=== PATIENT | male | born 1930 | race Caucasian/White ===

== ENCOUNTER → 2017-01-29 | Outpatient (REF) | payer MEDICARE ==
[~2017-01-29] MED LIST: ALPR2TAB3 PO; COLA100C5 PO; FINA5TAB2 PO; FLOM5CAP PO; FURO20TA2 PO; IRBE150T12 PO; ISOS20TA PO; LIDO2JELLY TOP; MIRA3350 PO; NORCOTAB PO; OXYB5TAB10 PO; PARO20TA3 PO; PRAV40TA2 PO; PROT1TAB2 PO; SULF1TAB23 PO; TRAM37.53 PO; TYLE167L PO; XARE15TA PO; XARE20TA PO
[2017-01-29 19:49] LABS: MEAN CORPUSCULAR HEMOGLOBIN 31.4 pg (27.0-33.0); MEAN CORPUSCULAR HGB CONC 33.8 g/dl (32.0-36.5); MEAN CORPUSCULAR VOLUME 92.9 fl (80.0-96.0); RED CELL DISTRIBUTION WIDTH 12.7 % (11.5-14.5); WHITE BLOOD COUNT 8.5 K/mm3 (4.0-10.0)
[2017-01-29 20:09] LABS: ALBUMIN/GLOBULIN RATIO 1.18 (1.00-1.93); ALKALINE PHOSPHATASE 143 U/L (45-117); ALT/SGPT 20 U/L (12-78); ANION GAP 8 MEQ/L (8-16); AST/SGOT 10 U/L (15-37); BILIRUBIN,TOTAL 0.5 MG/DL (0.2-1.0); BLOOD UREA NITROGEN 24 MG/DL (7-18); CALCIUM LEVEL 9.2 MG/DL (8.8-10.2); CARBON DIOXIDE LEVEL 29 MEQ/L (21-32); CHLORIDE LEVEL 105 MEQ/L (98-107); CHOLESTEROL LEVEL 166 MG/DL (<200); CREATININE FOR GFR 1.07 MG/DL (0.70-1.30); GLOMERULAR FILTRATION RATE > 60.0 (>35); GLUCOSE, FASTING 83 MG/DL (83-110); SODIUM LEVEL 142 MEQ/L (136-145); TOTAL PROTEIN 7.4 GM/DL (6.4-8.2); TRIGLYCERIDES LEVEL 72 MG/DL (<150)
== END ==
LOC: M SFHCADAM 14:51
PROVIDERS: ATTEND Family Medicine
DX: E78.5 Hyperlipidemia, unspecified (principal); Z86.718 Personal history of other venous thrombosis and embolism
CPT/HCPCS: 80053; 80061; 85027; G0463

== ENCOUNTER → 2017-03-16 | Outpatient (REF) | payer MEDICARE ==
[2017-03-16 19:39] LABS: MICROSCOPIC INDICATED? MAN YES (NO)
[2017-03-16 20:44] LABS: MICROSCOPIC EXAM PERFORMED
[2017-03-16 20:45] LABS: BACTERIA, URINE SMALL AMOUNT; HYALINE CAST, URINE NONE SEEN /lpf (0-1); RBC, URINE NONE SEEN /hpf (0-3); SQUAMOUS EPITHELIAL CELL URINE SMALL AMOUNT /hpf (SMALL AMT)
== END ==
LOC: M SMT 17:40
PROVIDERS: ATTEND Nurse Practitioner Women's Health
DX: N31.9 Neuromuscular dysfunction of bladder, unspecified (principal); N40.0 Benign prostatic hyperplasia without lower urinary tract symptoms
CPT/HCPCS: 51703; 81000; 87088; 87186; G0463

== ENCOUNTER 2017-04-02 09:50 | Emergency (ER) | payer MEDICARE ==
[~2017-04-02] VITALS: Ht 172.7 cm; Wt 68.2 kg
[~2017-04-02 09:50] MED LIST changes: -FINA5TAB2 PO; -OXYB5TAB10 PO; -PARO20TA3 PO
[2017-04-02] MEDS ORDERED: FINA5TAB2 PO (10:07)
[2017-04-02] MEDS ORDERED: PARO20TA3 PO (10:07)
[2017-04-02] MEDS ORDERED: OXYB5TAB10 PO (10:30)
[2017-04-02 10:44] LABS: BASO % 0.7 % (0.0-1.0); EOS # 0.4 K/mm3 (0.0-0.50); EOS % 6.5 % (0.0-3.0); LARGE UNSTAINED CELL # 0.2 K/mm3 (0.0-0.4); LARGE UNSTAINED CELL % 2.8 % (0.0-4.0); LYMPH # 1.2 K/mm3 (1.5-4.5); LYMPH % 18.2 % (24.0-44.0); MEAN CORPUSCULAR HEMOGLOBIN 31.6 pg (27.0-33.0); MEAN CORPUSCULAR HGB CONC 34.3 g/dl (32.0-36.5); MEAN CORPUSCULAR VOLUME 91.9 fl (80.0-96.0); MONO # 0.4 K/mm3 (0.0-0.8); MONO % 5.7 % (0.0-5.0); NEUTROPHILS # 4.4 K/mm3 (1.8-7.7); PLATELET COUNT, AUTOMATED 223 k/mm3 (150-450); RED CELL DISTRIBUTION WIDTH 12.6 % (11.5-14.5); WHITE BLOOD COUNT 6.6 K/mm3 (4.0-10.0)
--- NOTE | 2017-04-02 11:17 | REP ---
PORTABLE CHEST X-RAY: Single view. HISTORY: Chest pain. COMPARISON STUDY: February 07, 2009. FINDINGS: The lungs are symmetrically aerated and free of infiltrate. There is mild linear plate-like atelectasis in the right base. Heart is not enlarged. The aorta is tortuous. The patient is status post thoracolumbar spine shannan fusion surgery. IMPRESSION: Mild linear plate-like atelectasis right base. Otherwise no acute disease. Status post thoracolumbar spine fusion. Signed by Elias Bro MD 04/02/2017 02:37 P
[2017-04-02 11:41] LABS: ALBUMIN 3.2 GM/DL (3.2-5.2); ALKALINE PHOSPHATASE 111 U/L (45-117); ALT/SGPT 20 U/L (12-78); ANION GAP 10 MEQ/L (8-16); AST/SGOT 15 U/L (15-37); BILIRUBIN,DIRECT 0.1 MG/DL (0.0-0.2); BILIRUBIN,TOTAL 0.4 MG/DL (0.2-1.0); BLOOD UREA NITROGEN 22 MG/DL (7-18); CALCIUM LEVEL 8.7 MG/DL (8.8-10.2); CARBON DIOXIDE LEVEL 27 MEQ/L (21-32); CHLORIDE LEVEL 107 MEQ/L (98-107); CREATININE FOR GFR 0.89 MG/DL (0.70-1.30); GLOMERULAR FILTRATION RATE > 60.0 (>35); GLUCOSE, FASTING 85 MG/DL (83-110); POTASSIUM SERUM 4.4 MEQ/L (3.5-5.1); SODIUM LEVEL 144 MEQ/L (136-145); TOTAL PROTEIN 6.1 GM/DL (6.4-8.2)
[2017-04-02] MEDS ORDERED: ISOVUE-370 76% 100ML VIAL (Q9967) As Ordered ONE (12:18)
--- NOTE | 2017-04-02 13:11 | REP ---
CT PULMONARY ANGIOGRAM: With IV contrast. HISTORY: Pulmonary embolism. COMPARISON STUDIES: January 20, 2014. CONTRAST DOSE: 75 mL of Isovue [address] TECHNIQUE: Helical scanning is acquired and overlapping 1.5 mm and contiguous 3 mm axial images are reformatted. In addition, a 3D work station is deployed to generate thick slab maximum intensity projection images in sagittal and coronal imaging projections. CT PULMONARY ANGIOGRAPHIC FINDINGS: There is good opacification of the pulmonary arterial tree and there is no CT evidence of pulmonary embolism. Thoracic aorta is unremarkable. There is some vascular calcification. A moderate size hiatal hernia is noted behind the heart. No pleural or pericardial effusion is seen. No hilar or mediastinal mass or adenopathy is observed. No adrenal lesion is observed. There is a cyst in the right kidney and granulomatous calcifications are noted in the spleen. These findings are unchanged from the comparison CT study in January 20 2014. The patient has undergone thoracolumbar spine fusion. IMPRESSION: No CT evidence of pulmonary embolism. No significant change from the January 20, 2014 prior study. Hiatal hernia. Thoracolumbar spine fusion. Signed by Elias Bro MD 04/02/2017 02:39 P
[2017-04-02 15:40] VITALS: BP 122/84
--- NOTE | 2017-04-03 06:06 | ECGEPIP ---
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
--- NOTE | 2017-04-03 08:14 | ECGEPIP ---
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
== END 2017-04-02 15:41 | disposition home or self-care (01) ==
LOC: M ED 09:50
DX: R07.89 Other chest pain (principal); K21.9 Gastro-esophageal reflux disease without esophagitis; R00.1 Bradycardia, unspecified; I44.0 Atrioventricular block, first degree; K44.9 Diaphragmatic hernia without obstruction or gangrene; M43.25 Fusion of spine, thoracolumbar region; I10 Essential (primary) hypertension; Z86.718 Personal history of other venous thrombosis and embolism; I25.10 Atherosclerotic heart disease of native coronary artery without angina pectoris; N40.0 Benign prostatic hyperplasia without lower urinary tract symptoms; Z79.899 Other long term (current) drug therapy
CPT/HCPCS: 71010; 71275; 80048; 80076; 82550; 82553; 83690; 83880; 84443; 84484; 85025; 93005; 93041; 94760; 99285; Q9967

== ENCOUNTER → 2017-11-12 | Outpatient (REF) | payer MEDICARE ==
[2017-11-12 21:57] LABS: HEMATOCRIT 48.1 % (42.0-52.0); HEMOGLOBIN 15.5 g/dl (13.5-17.5); MEAN CORPUSCULAR HEMOGLOBIN 30.1 pg (27.0-33.0); MEAN CORPUSCULAR HGB CONC 32.2 g/dl (32.0-36.5); MEAN CORPUSCULAR VOLUME 93.4 fl (80.0-96.0); PLATELET COUNT, AUTOMATED 247 10^3/uL (150-450); RED BLOOD COUNT 5.15 10^6/uL (4.30-6.10); RED CELL DISTRIBUTION WIDTH 13.3 % (11.5-14.5); WHITE BLOOD COUNT 9.4 10^3/uL (4.0-10.0)
[2017-11-12 22:22] LABS: ALBUMIN 4.1 GM/DL (3.2-5.2); ALBUMIN/GLOBULIN RATIO 1.14 (1.00-1.93); ALKALINE PHOSPHATASE 151 U/L (45-117); ALT/SGPT 21 U/L (12-78); ANION GAP 8 MEQ/L (8-16); AST/SGOT 12 U/L (7-37); BILIRUBIN,TOTAL 0.4 MG/DL (0.2-1.0); BLOOD UREA NITROGEN 26 MG/DL (7-18); CALCIUM LEVEL 9.1 MG/DL (8.8-10.2); CARBON DIOXIDE LEVEL 29 MEQ/L (21-32); CHLORIDE LEVEL 108 MEQ/L (98-107); CHOLESTEROL LEVEL 171 MG/DL (<200); CHOLESTEROL RISK RATIO 2.758 (<5); CREATININE FOR GFR 0.97 MG/DL (0.70-1.30); FREE T4 0.88 NG/DL (0.76-1.46); GLOMERULAR FILTRATION RATE > 60.0 (>35); GLUCOSE, FASTING 89 MG/DL (70-100); HDL CHOLESTEROL 62 MG/DL (>40); LDL CHOLESTEROL 94.2 MG/DL (<100); NON-HDL-C 109 MG/DL; POTASSIUM SERUM 4.5 MEQ/L (3.5-5.1); SODIUM LEVEL 145 MEQ/L (136-145); TOTAL PROTEIN 7.7 GM/DL (6.4-8.2); TRIGLYCERIDES LEVEL 74 MG/DL (<150)
== END ==
LOC: M SFHCADAM 15:28
DX: E78.5 Hyperlipidemia, unspecified (principal); Z86.718 Personal history of other venous thrombosis and embolism
CPT/HCPCS: 84443

== ENCOUNTER 2019-01-12 17:09 | Emergency (ER) | payer MEDICARE ==
[~2019-01-12] VITALS: Ht 177.8 cm; Wt 72.7 kg
[~2019-01-12 17:09] MED LIST changes: +FINA5TAB2 PO; +FLOM0.4C39 PO; -FLOM5CAP PO; +HYDR-3715 PO; -NORCOTAB PO; +OXYB5TAB10 PO; +PARO20TA3 PO; -SULF1TAB23 PO; +SULF1TAB93 PO
[2019-01-12] MEDS ORDERED: ACETAMINOPHEN 325 MG TAB PO ONE (17:45)
[2019-01-12 17:46] LABS: BASO % 0.6 % (0.0-1.0); EOS # 0.3 10^3/uL (0.0-0.50); EOS % 4.7 % (0.0-3.0); HEMATOCRIT 41.7 % (42.0-52.0); HEMOGLOBIN 13.9 g/dl (13.5-17.5); LYMPH # 1.4 10^3/uL (1.5-4.5); LYMPH % 20.2 % (24.0-44.0); MEAN CORPUSCULAR HEMOGLOBIN 31.2 pg (27.0-33.0); MEAN CORPUSCULAR HGB CONC 33.3 g/dl (32.0-36.5); MEAN CORPUSCULAR VOLUME 93.7 fl (80.0-96.0); MONO # 0.5 10^3/uL (0.0-0.8); MONO % 7.6 % (0.0-5.0); NEUTROPHILS # 4.6 10^3/uL (1.8-7.7); NEUTROPHILS % 66.6 % (36.0-66.0); PLATELET COUNT, AUTOMATED 207 10^3/uL (150-450); RED BLOOD COUNT 4.45 10^6/uL (4.30-6.10); WHITE BLOOD COUNT 6.9 10^3/uL (4.0-10.0)
--- NOTE | 2019-01-12 17:52 | REP ---
Chest one-view HISTORY: Chest pain Comparison: 04/02/2017 There is elevation of the right hemidiaphragm. Linear densities are present in the right lower lobe consistent with scar. The left lung is clear. The heart is normal in size. The pulmonary vasculature is normal in appearance. Impression: No acute disease. Electronically Signed by Reed Madrigal MD 01/12/2019 05:44 P
[2019-01-12 17:59] LABS: INR 1.8; PROTHROMBIN TIME 21.2 SECONDS (12.1-14.4)
[2019-01-12] MEDS ORDERED: HYDR-3713 PO ×2 (18:06)
[2019-01-12] MEDS ORDERED: PARO20TA3 PO (18:06)
[2019-01-12 18:32] LABS: ALBUMIN 3.5 GM/DL (3.2-5.2); ALT/SGPT 18 U/L (12-78); BILIRUBIN,TOTAL 0.3 MG/DL (0.2-1.0); BLOOD UREA NITROGEN 24 MG/DL (7-18); CALCIUM LEVEL 8.4 MG/DL (8.8-10.2); CARBON DIOXIDE LEVEL 27 MEQ/L (21-32); CHLORIDE LEVEL 107 MEQ/L (98-107); CPK CREATINE PHOSPHOKINASE 70 U/L (39-308); CREATININE FOR GFR 0.99 MG/DL (0.70-1.30); GLOMERULAR FILTRATION RATE > 60.0 (>35); GLUCOSE, FASTING 84 MG/DL (70-100); LIPASE 124 U/L (73-393); MB/CK RELATIVE INDEX 2.86 (< OR =4); POTASSIUM SERUM 3.8 MEQ/L (3.5-5.1); SODIUM LEVEL 142 MEQ/L (136-145); TROPONIN I < 0.02 NG/ML (< 0.10)
--- NOTE | 2019-01-12 18:39 | ECGEPIP ---
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
[2019-01-12 19:23] VITALS: BP 130/82
== END 2019-01-12 19:36 | disposition home or self-care (01) ==
LOC: M ED 17:09
DX: G89.29 Other chronic pain (principal); R07.9 Chest pain, unspecified; I44.0 Atrioventricular block, first degree; E78.5 Hyperlipidemia, unspecified; F32.9 Major depressive disorder, single episode, unspecified; F41.9 Anxiety disorder, unspecified; Z86.718 Personal history of other venous thrombosis and embolism; Z82.49 Family history of ischemic heart disease and other diseases of the circulatory system; Z79.899 Other long term (current) drug therapy

== ENCOUNTER → 2019-01-25 | Outpatient (REF) | payer MEDICARE ==
[~2019-01-25] MED LIST changes: +HYDR-3713 PO
[2019-01-25 19:27] LABS: HEMATOCRIT 45.4 % (42.0-52.0); HEMOGLOBIN 14.6 g/dl (13.5-17.5); MEAN CORPUSCULAR HGB CONC 32.2 g/dl (32.0-36.5); MEAN CORPUSCULAR VOLUME 93.4 fl (80.0-96.0); PLATELET COUNT, AUTOMATED 247 10^3/uL (150-450); RED BLOOD COUNT 4.86 10^6/uL (4.30-6.10); WHITE BLOOD COUNT 10.5 10^3/uL (4.0-10.0)
[2019-01-25 19:46] LABS: ALBUMIN 4.2 GM/DL (3.2-5.2); ALT/SGPT 20 U/L (12-78); BILIRUBIN,TOTAL 0.3 MG/DL (0.2-1.0); BLOOD UREA NITROGEN 19 MG/DL (7-18); CALCIUM LEVEL 9.5 MG/DL (8.8-10.2); CARBON DIOXIDE LEVEL 27 MEQ/L (21-32); CHLORIDE LEVEL 104 MEQ/L (98-107); CHOLESTEROL LEVEL 160 MG/DL (<200); CHOLESTEROL RISK RATIO 2.352 (<5); CREATININE FOR GFR 0.94 MG/DL (0.70-1.30); GLOMERULAR FILTRATION RATE > 60.0 (>35); GLUCOSE, FASTING 75 MG/DL (70-100); HDL CHOLESTEROL 68 MG/DL (>40); LDL CHOLESTEROL 76 MG/DL (<100); NON-HDL-C 92 MG/DL; POTASSIUM SERUM 4.3 MEQ/L (3.5-5.1); SODIUM LEVEL 141 MEQ/L (136-145); TOTAL PROTEIN 7.8 GM/DL (6.4-8.2); TRIGLYCERIDES LEVEL 82 MG/DL (<150)
== END ==
LOC: M SFHCADAM 15:23
PROVIDERS: ATTEND Family Medicine
DX: F32.9 Major depressive disorder, single episode, unspecified (principal); I11.9 Hypertensive heart disease without heart failure; E78.5 Hyperlipidemia, unspecified
CPT/HCPCS: 80053; 80061; 84439; 84443; 85027; G0463

== ENCOUNTER 2019-10-11 12:37 | Inpatient (IN) | payer MEDICARE ==
[~2019-10-11] VITALS: Ht 167.6 cm; Wt 70.0 kg
[~2019-10-11 12:37] MED LIST changes: -IRBE150T12 PO; +IRBE150T7 PO
[2019-10-11] MEDS ORDERED: NS 500 ML IV ONE (14:00)
[2019-10-11 15:00] LABS: BASO % 0.6 % (0.0-1.0); EOS # 0.2 10^3/uL (0.0-0.5); EOS % 2.4 % (0.0-3.0); HEMATOCRIT 36.8 % (42.0-52.0); LYMPH # 0.8 10^3/uL (1.5-5.0); LYMPH % 12.1 % (24.0-44.0); MEAN CORPUSCULAR HEMOGLOBIN 29.9 pg (27.0-33.0); MEAN CORPUSCULAR HGB CONC 32.6 g/dl (32.0-36.5); MEAN CORPUSCULAR VOLUME 91.5 fl (80.0-96.0); MONO # 0.6 10^3/uL (0.0-0.8); MONO % 8.5 % (0.0-5.0); NEUTROPHILS # 5.2 10^3/uL (1.5-8.5); NEUTROPHILS % 76.1 % (36.0-66.0); PLATELET COUNT, AUTOMATED 217 10^3/uL (150-450); RED BLOOD COUNT 4.02 10^6/uL (4.30-6.10); WHITE BLOOD COUNT 6.8 10^3/uL (4.0-10.0)
[2019-10-11 15:36] LABS: ALBUMIN 3.3 GM/DL (3.2-5.2); ALT/SGPT 25 U/L (12-78); BILIRUBIN,DIRECT 0.2 MG/DL (0.0-0.2); BILIRUBIN,TOTAL 0.6 MG/DL (0.2-1.0); BLOOD UREA NITROGEN 26 MG/DL (7-18); CALCIUM LEVEL 8.5 MG/DL (8.8-10.2); CARBON DIOXIDE LEVEL 26 MEQ/L (21-32); CHLORIDE LEVEL 106 MEQ/L (98-107); CK-MB VALUE MASS 3.8 NG/ML (<3.6); CPK CREATINE PHOSPHOKINASE 212 U/L (39-308); CREATININE FOR GFR 0.97 MG/DL (0.70-1.30); GLOMERULAR FILTRATION RATE > 60.0 (>35); GLUCOSE, FASTING 84 MG/DL (70-100); LIPASE 58 U/L (73-393); MB/CK RELATIVE INDEX 1.79 (< OR =4); POTASSIUM SERUM 3.6 MEQ/L (3.5-5.1); SODIUM LEVEL 139 MEQ/L (136-145); TOTAL PROTEIN 6.6 GM/DL (6.4-8.2); TROPONIN I < 0.02 NG/ML (< 0.10)
[2019-10-11] MEDS ORDERED: NS 1,000 ML IV SCH (17:45)
[2019-10-11] MEDS ORDERED: PILL CUTTER 1 EACH XX PRN (18:15)
--- NOTE | 2019-10-11 19:03 | HPEPDOC ---
[facility] Medical History & Physical Date of Admission Oct 11, 2019 Date of Service: Oct 11, 2019 Attending Physician: MARA MEDINA MD History and Physical CHIEF COMPLAINT: Dark stool HISTORY OF PRESENT ILLNESS: 89 y.o male w/ PMH of Dementia, DVT (on Xarelto), HTN, back injury & urinary retention requiring self catheterization presents from home with dark stool. Patient is a very poor historian, information obtained from at bedside. Patient was reportedly doing well up until 3-4 days ago when his noted fecal incontinence along with loose dark stool. Patient continued to have dark stool until yesterday but the fecal incontinence persists. He had no associated symptoms. He is currently comfortable in bed, without any complaints. Patient denies any SOB, CP, N/V or abdominal pain. 10 point review of system is negative except for above PAST MEDICAL HISTORY: 1. Dementia 2. HTN 3. DVT 4. GERD 5. Back injury 6. Urinary retention PAST SURGICAL HISTORY: 1. Back surgery SOCIAL HISTORY: Never smoker denies alcohol use denies drug use FAMILY HISTORY: Positive for heart disease ALLERGIES: Please see below. HOME MEDICATIONS: Please see below. PHYSICAL EXAMINATION: VITAL SIGNS: See below GENERAL APPEARANCE: No distress HEENT: Moist mucus membranes CARDIOVASCULAR: S1, S2, no murmurs LUNGS: Clear to auscultation ABDOMEN: Soft, non-tender, non-distended, +S EXTREMITIES: ROM intact NEUROLOGICAL: No focal deficits PSYCHIATRIC: calm LABORATORY DATA: See below. MICROBIOLOGY: Please see below. ASSESSMENT: 89 y.o male w/ multiple medical comorbidities is being admitted for possible GI bleed. PLAN: 1. ?GI bleed - dark stool for the past few days, stool OB pending, on Xarelto, no signs of active gross bleeding, clear liquid diet, gentle IV hydration, H/H stable, will recheck in the morning, no need for acute intervention/GI consultation at this time. 2. DVT - hold Xarelto. 3. HTN - continue irbesartan 4. GERD - continue PPI 5. urinary retention - continue self catheterization DVT Prophylaxis - SCDs GI prophylaxis - home PPI Patient's PCP is Dr. Kat, patient was signed out to Dr. James who will assume care from here on. Vital Signs Vital Signs Date Time Temp Pulse Resp B/P (MAP) Pulse Ox O2 Delivery O2 Flow Rate FiO2 10/11/19 12:41 97.7 69 18 113/62 99 Room Air Laboratory Data Labs 24H Laboratory Tests 2 10/11/19 14:43: Immature Granulocyte % (Auto) 0.3, Neutrophils (%) (Auto) 76.1H, Lymphocytes (%) (Auto) 12.1L, Monocytes (%) (Auto) 8.5H, Eosinophils (%) (Auto) 2.4, Basophils (%) (Auto) 0.6, Neutrophils # (Auto) 5.2, Lymphocytes # (Auto) 0.8L, Monocytes # (Auto) 0.6, Eosinophils # (Auto) 0.2, Basophils # (Auto) 0.0, Nucleated Red Bl ood Cells % (auto) 0.0, Anion Gap 7L, Glomerular Filtration Rate > 60.0, Calcium Level 8.5L, Total Bilirubin 0.6, Direct Bilirubin 0.2, Aspartate Amino Transf (AST/SGOT) 20, Alanine Aminotransferase (ALT/SGPT) 25, Alkaline Phosphatase 100, Total Creatine Kinase 212, Creatine Kinase MB 3.8H, Creatine Kinase MB Relative Index 1.79, Troponin I < 0.02, Total Protein 6.6, Albumin 3.3, Albumin/Globulin Ratio 1.00, Lipase 58L CBC/BMP Laboratory Tests 10/11/19 14:43 Microbiology Microbiology 10/11/19 Gastrointestinal Tract Panel (PCR) - Final, Complete Home Medications Scheduled Finasteride (Finasteride) 5 Mg Tab, 5 MG PO QHS Furosemide (Furosemide) 20 Mg Tab, 20 MG PO QHS Irbesartan (Irbesartan) 150 Mg Tab, 75 MG PO DAILY Oxybutynin Chloride (Oxybutynin Chloride) 5 Mg Tab, 5 MG PO DAILY Pantoprazole Sodium (Protonix) 40 Mg Tab, 40 MG PO DAILY Paroxetine HCl (Paroxetine HCl) 20 Mg Tab, 20 MG PO QAM Paroxetine HCl (Paroxetine HCl) 20 Mg Tablet, 10 MG PO QHS Pravastatin Sodium (Pravastatin Sodium) 40 Mg Tab, 40 MG PO QHS Rivaroxaban (Xarelto) 20 Mg Tab, 20 MG PO DAILY Tamsulosin HCl (Flomax) 0.4 Mg Cap, 0.4 MG PO DAILY Scheduled PRN Hydrocodone/Acetaminophen (Hydrocodone-Acetamin 5-325 mg) 1 Each Tablet, 1 TAB PO Q6H PRN for PAIN Allergies Coded Allergies: No Known Allergies (Unverified , 04/02/17) A-FIB/CHADSVASC A-FIB History Current/History of A-Fib/PAF?: No MARA MEDINA MD Oct 11, 2019 19:03
[2019-10-11 20:17] VITALS: BP 126/75
[2019-10-11] MEDS: PARoxetine 10MG TABLET PO SCH (21:57)
[2019-10-11] MEDS: PRAVASTATIN 20 MG TAB PO SCH (21:57)
[2019-10-11] MEDS: FINASTERIDE 5 MG TAB PO SCH (21:57)
[2019-10-12] VITALS: BP 139/78
[2019-10-12 02:18] LABS: CK-MB VALUE MASS 4.3 NG/ML (<3.6); CPK CREATINE PHOSPHOKINASE 160 U/L (39-308); MB/CK RELATIVE INDEX 2.69 (< OR =4); TROPONIN I < 0.02 NG/ML (< 0.10)
[2019-10-12 04:00] VITALS: BP 124/71
[2019-10-12 05:33] LABS: HEMATOCRIT 34.3 % (42.0-52.0); HEMOGLOBIN 11.3 g/dl (13.5-17.5); MEAN CORPUSCULAR HEMOGLOBIN 29.7 pg (27.0-33.0); MEAN CORPUSCULAR HGB CONC 32.9 g/dl (32.0-36.5); MEAN CORPUSCULAR VOLUME 90.3 fl (80.0-96.0); PLATELET COUNT, AUTOMATED 213 10^3/uL (150-450); WHITE BLOOD COUNT 6.7 10^3/uL (4.0-10.0)
[2019-10-12 05:56] LABS: ALBUMIN 3.1 GM/DL (3.2-5.2); ALT/SGPT 20 U/L (12-78); BILIRUBIN,TOTAL 0.6 MG/DL (0.2-1.0); BLOOD UREA NITROGEN 24 MG/DL (7-18); CALCIUM LEVEL 8.1 MG/DL (8.8-10.2); CARBON DIOXIDE LEVEL 23 MEQ/L (21-32); CHLORIDE LEVEL 109 MEQ/L (98-107); CREATININE FOR GFR 0.86 MG/DL (0.70-1.30); GLOMERULAR FILTRATION RATE > 60.0 (>35); GLUCOSE, FASTING 68 MG/DL (70-100); MAGNESIUM LEVEL 2.4 MG/DL (1.8-2.4); POTASSIUM SERUM 3.2 MEQ/L (3.5-5.1); SODIUM LEVEL 140 MEQ/L (136-145); TOTAL PROTEIN 6.5 GM/DL (6.4-8.2)
--- NOTE | 2019-10-12 06:14 | ECGEPIP ---
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
[2019-10-12] MEDS ORDERED: POTASSIUM CHLORIDE 10 MEQ SR TABLET PO ONE (08:00)
[2019-10-12] MEDS: PANTOPRAZOLE 40MG TAB (PROTONIX) PO SCH (08:11)
[2019-10-12] MEDS: oxyBUTYnin 5 MG TAB PO SCH (08:11)
[2019-10-12] MEDS: TAMSULOSIN 0.4 MG CAP PO SCH (08:11)
[2019-10-12] MEDS: PARoxetine 20 MG TAB PO SCH (08:12)
[2019-10-12] MEDS: IRBESARTAN 150 MG TAB PO SCH (08:14)
[2019-10-12] MEDS: D5W/0.9% SODIUM CHLORIDE 1,000 ML IV SCH ×2 (08:14→22:16)
[2019-10-12 08:35] VITALS: BP 133/68
--- NOTE | 2019-10-12 11:03 | IPNPDOC ---
Subjective Date Seen The patient was seen on 10/12/19. Subjective Chief Complaint/HPI GERD/GIB Events since last encounter Admitted for nausea, + hemoccult. Hgb has remained stable. Tolerating po. denies c/o, however has progressive dementia and conversation is on intelligible. Objective Physical Examination General Exam: Positive: Alert, No Acute Distress Eye Exam: Positive: PERRLA, Conjunctiva & lids normal, EOMI; Negative: Sclera icteric Chest Exam: Positive: Clear to auscultation, Normal air movement Heart Exam: Positive: Rate Normal, Regular Rhythm, Normal S1, Normal S2; Negative: Murmurs, Rubs Telemetry: Positive: No significant arrhythmia Abdomen Exam: Positive: Normal bowel sounds, Soft; Negative: Tenderness, Hepatospenomegaly Skin Exam: Positive: Nl turgor and temperature; Negative: Rash, Breakdown Neuro Exam: Positive: Normal Gait, Normal Speech, Cranial Nerves 3-12 NL, Reflexes 2+ Psych Exam: Positive: Mental status NL, Mood NL, Oriented x 3 Assessment /Plan Problems (1) UGI bleed Status: Acute Problem Text: Xarelto on hold. IV protonix. Advance diet as tolerated. monitor Hgb. Outpatient gastro for scope if appropriate. (2) GERD (gastroesophageal reflux disease) Status: Chronic (3) Dementia (4) Adverse effect of anticoagulant Status: Acute Problem Text: Xarelto on hold. may want to consider transition to alternative anti-coagulation on discharge. (5) DVT (deep venous thrombosis) Status: Chronic Problem Text: Xarelto currently on hold. (6) Impaired fasting glucose Status: Chronic Response to Treatment: Stable (7) Urinary retention Status: Chronic Problem Text: intermittently self catheterizes. Continue home dose Flomax and Proscar (8) HTN (hypertension) Status: Chronic Problem Text: continue home dose of Irbesartan Plan/VTE VTE Prophylaxis Ordered?: No VTE Exclusion Pharmacological: Bleeding Risk VS, I&O, 24H, Fishbone Vital Signs/I&O Vital Signs Date Time Temp Pulse Resp B/P (MAP) Pulse Ox O2 Delivery O2 Flow Rate FiO2 10/12/19 08:35 97.4 76 19 133/68 (89) 95 Room Air I&O- Last 24 Hours up to 6 AM 10/12/19 06:00 Intake Total 1000 ml Output Total 600 ml Balance 400 ml Laboratory Data 24H LABS Laboratory Tests 2 10/11/19 14:43: Immature Granulocyte % (Auto) 0.3, Neutrophils (%) (Auto) 76.1H, Lymphocytes (%) (Auto) 12.1L, Monocytes (%) (Auto) 8.5H, Eosinophils (%) (Auto) 2.4, Basophils (%) (Auto) 0.6, Neutrophils # (Auto) 5.2, Lymphocytes # (Auto) 0.8L, Monocytes # (Auto) 0.6, Eosinophils # (Auto) 0.2, Basophils # (Auto) 0.0, Nucleated Red Blood Cells % (auto) 0.0, Anion Gap 7L, Glomerular Filtration Rate > 60.0, Calcium Level 8.5L, Total Bilirubin 0.6, Direct Bilirubin 0.2, Aspartate Amino Transf (AST/SGOT) 20, Alanine Aminotransferase (ALT/SGPT) 25, Alkaline Phosphatase 100, Total Creatine Kinase 212, Creatine Kinase MB 3.8H, Creatine Kinase MB Relative Index 1.79, Troponin I < 0.02, Total Protein 6.6, Albumin 3.3, Albumin/Globulin Ratio 1.00, Lipase 58L 10/12/19 01:15: Total Creatine Kinase 160, Creatine Kinase MB 4.3H, Creatine Kinase MB Relative Index 2.69, Troponin I < 0.02 10/12/19 04:58: Nucleated Red Blood Cells % (auto) 0.0, Anion Gap 8, Glomerular Filtration Rate > 60.0, Calcium Level 8.1L, Total Bilirubin 0.6, Aspartate Amino Transf (AST/SGOT) 12, Alanine Aminotransferase (ALT/SGPT) 20, Alkaline Phosphatase 100, Total Protein 6.5, Albumin 3.1L, Albumin/Globulin Ratio 0.91L, Magnesium Level 2.4 CBC/BMP Laboratory Tests 10/11/19 14:43 10/12/19 04:58 Microbiology Microbiology 10/11/19 Stool Occult Blood (KENNEY) - Final, Complete 10/11/19 Gastrointestinal Tract Panel (PCR) - Final, Complete Adela Oliveros DRUG ABUSE COUNSELOR Oct 12, 2019 11:03
[2019-10-12 13:44] LABS: HEMATOCRIT 34.7 % (42.0-52.0); HEMOGLOBIN 11.4 g/dl (13.5-17.5)
[2019-10-12 14:29] VITALS: BP 109/55
--- NOTE | 2019-10-12 20:49 | ECGEPIP ---
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
[2019-10-12 22:00] VITALS: BP 143/81
[2019-10-12] MEDS: FINASTERIDE 5 MG TAB PO SCH (22:15)
[2019-10-12] MEDS: PARoxetine 10MG TABLET PO SCH (22:15)
[2019-10-12] MEDS: PRAVASTATIN 20 MG TAB PO SCH (22:15)
[2019-10-12] MEDS: NORCO, ANEXSIA 5/325MG TABLET (HYDROcodone/ACETAMINOPHEN) PO PRN (22:16)
[2019-10-13] MEDS ORDERED: HALOPERIDOL 5 MG/ML VIAL (J1630) IM PRN (03:30)
[2019-10-13] MEDS: IRBESARTAN 150 MG TAB PO SCH (10:21)
[2019-10-13] MEDS: TAMSULOSIN 0.4 MG CAP PO SCH (10:21)
[2019-10-13] MEDS: PANTOPRAZOLE 40MG TAB (PROTONIX) PO SCH (10:21)
[2019-10-13] MEDS: PARoxetine 20 MG TAB PO SCH (10:21)
[2019-10-13] MEDS: oxyBUTYnin 5 MG TAB PO SCH (10:21)
--- NOTE | 2019-10-13 10:34 | IPNPDOC ---
Subjective Date Seen The patient was seen on 10/13/19. Subjective Chief Complaint/HPI Nusring this morning states pt had a rough night, he was combative and aggressive to staff, now has a sitter. General: Denies: Fatigue Constitutional: Denies: Fever Pulmonary: Denies: Dyspnea, Cough Cardiovascular: Denies: Chest Pain, Palpitations Gastrointestinal: Denies: Abdominal Pain Musculoskeletal: Reports: Back Pain (chronic) Objective Physical Examination General Exam: Positive: Alert (asleep when I entered the room, but aroused easily, was pleasant, unaware of his surroundings, confused), No Acute Distress Chest Exam: Positive: Clear to auscultation, Normal air movement Heart Exam: Positive: Rate Normal, Regular Rhythm, Normal S1, Normal S2; Negative: Murmurs, Rubs Telemetry: Positive: No significant arrhythmia Abdomen Exam: Positive: Normal bowel sounds, Soft; Negative: Tenderness, Hepatospenomegaly Skin Exam: Positive: Nl turgor and temperature; Negative: Rash, Breakdown Neuro Exam: Positive: Normal Speech Psych Exam: Negative: Oriented x 3 Assessment /Plan Problems (1) UGI bleed Status: Acute Problem Text: 10/12 UGI bleeding likely assoc with Xarelto, current held, cont with Protonix, await BW from this morning, he was combative overnight and therefore this wasn't drawn as usual. 10/11 Xarelto on hold. IV protonix. Advance diet as tolerated. monitor Hgb. Outpatient gastro for scope if appropriate. JFW: paln d/c 10/13 if hgb is stable (2) GERD (gastroesophageal reflux disease) Status: Chronic (3) Dementia Status: Chronic Problem Specific Plan: Monitor Clinically (4) Adverse effect of anticoagulant Status: Acute Problem Text: Xarelto on hold. may want to consider transition to alternative anti-coagulation on discharge. (5) DVT (deep venous thrombosis) Status: Chronic Problem Text: Xarelto currently on hold. (6) Impaired fasting glucose Status: Chronic Response to Treatment: Stable (7) Urinary retention Status: Chronic Problem Text: intermittently self catheterizes. Continue home dose Flomax and Proscar (8) HTN (hypertension) Status: Chronic Problem Text: continue home dose of Irbesartan Plan/VTE VTE Prophylaxis Ordered?: No VTE Exclusion Pharmacological: Bleeding Risk VS, I&O, 24H, Fishbone Vital Signs/I&O Vital Signs Date Time Temp Pulse Resp B/P (MAP) Pulse Ox O2 Delivery O2 Flow Rate FiO2 10/13/19 10:21 132/86 10/12/19 22:46 18 10/12/19 22:00 97.4 68 96 Room Air I&O- Last 24 Hours up to 6 AM 10/13/19 06:00 Intake Total 2330 ml Output Total 300 ml Balance 2030 ml Laboratory Data CBC/BMP Laboratory Tests 10/12/19 13:26 Microbiology Microbiology 10/11/19 Stool Occult Blood (KENNEY) - Final, Complete 10/11/19 Gastrointestinal Tract Panel (PCR) - Final, Complete CATHIE ELLIOTT PA-C Oct 13, 2019 10:34 Ozzy Kat MD Oct 13, 2019 15:02
[2019-10-13] MEDS: D5W/0.9% SODIUM CHLORIDE 1,000 ML IV SCH (12:28)
[2019-10-13 12:43] LABS: BASO # 0.1 10^3/uL (0.0-0.2); BASO % 0.8 % (0.0-1.0); EOS # 0.2 10^3/uL (0.0-0.5); EOS % 3.2 % (0.0-3.0); HEMATOCRIT 32.7 % (42.0-52.0); HEMOGLOBIN 10.8 g/dl (13.5-17.5); LYMPH # 0.8 10^3/uL (1.5-5.0); LYMPH % 12.8 % (24.0-44.0); MEAN CORPUSCULAR VOLUME 90.8 fl (80.0-96.0); MONO # 0.7 10^3/uL (0.0-0.8); NEUTROPHILS # 4.7 10^3/uL (1.5-8.5); NEUTROPHILS % 72.7 % (36.0-66.0); PLATELET COUNT, AUTOMATED 221 10^3/uL (150-450); WHITE BLOOD COUNT 6.5 10^3/uL (4.0-10.0)
[2019-10-13 13:11] LABS: ALBUMIN 2.7 GM/DL (3.2-5.2); ALT/SGPT 17 U/L (12-78); BILIRUBIN,TOTAL 0.3 MG/DL (0.2-1.0); BLOOD UREA NITROGEN 12 MG/DL (7-18); CALCIUM LEVEL 8.1 MG/DL (8.8-10.2); CARBON DIOXIDE LEVEL 24 MEQ/L (21-32); CHLORIDE LEVEL 115 MEQ/L (98-107); CREATININE FOR GFR 0.82 MG/DL (0.70-1.30); GLOMERULAR FILTRATION RATE > 60.0 (>35); GLUCOSE, FASTING 92 MG/DL (70-100); POTASSIUM SERUM 3.4 MEQ/L (3.5-5.1); SODIUM LEVEL 145 MEQ/L (136-145); TOTAL PROTEIN 5.7 GM/DL (6.4-8.2)
[2019-10-13] MEDS: PARoxetine 10MG TABLET PO SCH (20:22)
[2019-10-13] MEDS: PRAVASTATIN 20 MG TAB PO SCH (20:22)
[2019-10-13] MEDS: FINASTERIDE 5 MG TAB PO SCH (20:22)
[2019-10-13] MEDS: NORCO, ANEXSIA 5/325MG TABLET (HYDROcodone/ACETAMINOPHEN) PO PRN (20:26)
[2019-10-13 22:00] VITALS: BP 143/73
[2019-10-14 06:00] VITALS: BP 137/72
[2019-10-14 06:46] LABS: BASO # 0.1 10^3/uL (0.0-0.2); EOS # 0.3 10^3/uL (0.0-0.5); EOS % 5.2 % (0.0-3.0); HEMATOCRIT 32.8 % (42.0-52.0); HEMOGLOBIN 10.9 g/dl (13.5-17.5); LYMPH # 1.3 10^3/uL (1.5-5.0); LYMPH % 20.5 % (24.0-44.0); MEAN CORPUSCULAR HEMOGLOBIN 30.2 pg (27.0-33.0); MEAN CORPUSCULAR HGB CONC 33.2 g/dl (32.0-36.5); MEAN CORPUSCULAR VOLUME 90.9 fl (80.0-96.0); MONO # 0.6 10^3/uL (0.0-0.8); MONO % 9.3 % (0.0-5.0); NEUTROPHILS # 3.9 10^3/uL (1.5-8.5); NEUTROPHILS % 63.7 % (36.0-66.0); PLATELET COUNT, AUTOMATED 223 10^3/uL (150-450); RED BLOOD COUNT 3.61 10^6/uL (4.30-6.10); WHITE BLOOD COUNT 6.1 10^3/uL (4.0-10.0)
[2019-10-14 07:16] LABS: ALT/SGPT 19 U/L (12-78); BILIRUBIN,TOTAL 0.4 MG/DL (0.2-1.0); BLOOD UREA NITROGEN 10 MG/DL (7-18); CALCIUM LEVEL 7.9 MG/DL (8.8-10.2); CARBON DIOXIDE LEVEL 25 MEQ/L (21-32); CHLORIDE LEVEL 116 MEQ/L (98-107); GLOMERULAR FILTRATION RATE > 60.0 (>35); GLUCOSE, FASTING 77 MG/DL (70-100); POTASSIUM SERUM 3.5 MEQ/L (3.5-5.1); SODIUM LEVEL 146 MEQ/L (136-145)
[2019-10-14 07:17] LABS: ALBUMIN 2.6 GM/DL (3.2-5.2); TOTAL PROTEIN 5.1 GM/DL (6.4-8.2)
[2019-10-14 07:47] LABS: APPEARANCE, URINE CLOUDY (CLEAR); COLOR, URINE YELLOW (YELLOW); GLUCOSE, URINE (UA) AUTO NEGATIVE (NEGATIVE); KETONE, URINE AUTO NEGATIVE (NEGATIVE); PROTEIN, URINE AUTO NEGATIVE (NEGATIVE); SPECIFIC GRAVITY URINE AUTO 1.012 (1.002-1.035); UROBILINOGEN, URINE AUTO 0.2 mg/dL (0.0-2.0)
[2019-10-14 07:48] LABS: BACTERIA, URINE AUTO 3+ (NEGATIVE); BILIRUBIN, URINE AUTO NEGATIVE (NEGATIVE); BLOOD, URINE BLOOD 2+ (NEGATIVE); LEUKOCYTE ESTERASE, URINE AUTO 3+ (NEGATIVE); NITRITE, URINE AUTO POSITIVE (NEGATIVE); RBC, URINE AUTO 22 /HPF (0-3); WBC, URINE AUTO 266 /HPF (0-3)
[2019-10-14 07:49] LABS: MUCUS, URINE SMALL (NEGATIVE); SQUAMOUS EPITHELIAL CELL UR AU <1.0 /HPF (0-6)
[2019-10-14] MEDS: IRBESARTAN 150 MG TAB PO SCH (09:36)
[2019-10-14] MEDS: oxyBUTYnin 5 MG TAB PO SCH (09:37)
[2019-10-14] MEDS: TAMSULOSIN 0.4 MG CAP PO SCH (09:37)
[2019-10-14] MEDS: PANTOPRAZOLE 40MG TAB (PROTONIX) PO SCH (09:37)
[2019-10-14] MEDS: PARoxetine 20 MG TAB PO SCH (09:37)
--- NOTE | 2019-10-14 10:14 | IPNPDOC ---
Subjective Date Seen The patient was seen on 10/14/19. Subjective Chief Complaint/HPI Pt this morning has just successfully cathed himself, he was having issues with this overnight. Nursing wants to advance his diet. Not safe per PT. General: Denies: Fatigue Constitutional: Denies: Chills, Fever Pulmonary: Denies: Dyspnea, Cough Cardiovascular: Denies: Chest Pain, Palpitations Gastrointestinal: Denies: Nausea, Vomiting, Diarrhea Neurological: Denies: Weakness Psych: Reports: Mood Normal Objective Physical Examination General Exam: Positive: Alert, No Acute Distress Chest Exam: Positive: Clear to auscultation, Normal air movement Heart Exam: Positive: Rate Normal, Regular Rhythm, Normal S1, Normal S2; Negative: Murmurs, Rubs Telemetry: Positive: No significant arrhythmia Abdomen Exam: Positive: Normal bowel sounds, Soft; Negative: Tenderness, Hepatospenomegaly Skin Exam: Positive: Nl turgor and temperature; Negative: Rash, Breakdown Neuro Exam: Positive: Normal Speech Psych Exam: Negative: Oriented x 3 Assessment /Plan Problems (1) UGI bleed Status: Acute Problem Text: 10/13 Hgb stable, Xarelto held, plan for outpt GI consult. Cont with PO Protonix, will advance diet. Not safe for DC per PT. 10/12 UGI bleeding likely assoc with Xarelto, current held, cont with Protonix, await BW from this morning, he was combative overnight and therefore this wasn't drawn as usual. 10/11 Xarelto on hold. IV protonix. Advance diet as tolerated. monitor Hgb. Outpatient gastro for scope if appropriate. PABLO: hattie d/c 10/13 if hgb is stable (2) Urinary retention Status: Chronic Problem Text: 10/13 difficulty overnight, but did well this morning. 10/12 intermittently self catheterizes. Continue home dose Flomax and Proscar (3) GERD (gastroesophageal reflux disease) Status: Chronic (4) Dementia Status: Chronic Problem Specific Plan: Monitor Clinically (5) Adverse effect of anticoagulant Status: Acute Problem Text: Xarelto on hold. may want to consider transition to alternative anti-coagulation on discharge. (6) DVT (deep venous thrombosis) Status: Chronic Problem Text: Xarelto currently on hold. (7) Impaired fasting glucose Status: Chronic Response to Treatment: Stable (8) HTN (hypertension) Status: Chronic Problem Text: continue home dose of Irbesartan Plan/VTE VTE Prophylaxis Ordered?: No VTE Exclusion Pharmacological: Bleeding Risk VS, I&O, 24H, Fishbone Vital Signs/I&O Vital Signs Date Time Temp Pulse Resp B/P (MAP) Pulse Ox O2 Delivery O2 Flow Rate FiO2 10/14/19 09:36 140/80 10/14/19 06:00 98.1 65 16 96 Room Air I&O- Last 24 Hours up to 6 AM 10/14/19 06:00 Intake Total 940 ml Output Total 825 ml Balance 115 ml Laboratory Data 24H LABS Laboratory Tests 2 10/13/19 12:21: Immature Granulocyte % (Auto) 0.5, Neutrophils (%) (Auto) 72.7H, Lymphocytes (%) (Auto) 12.8L, Monocytes (%) (Auto) 10.0H, Eosinophils (%) (Auto) 3.2H, Basophils (%) (Auto) 0.8, Neutrophils # (Auto) 4.7, Lymphocytes # (Auto) 0.8L, Monocytes # (Auto) 0.7, Eosinophils # (Auto) 0.2, Basophils # (Auto) 0.1, Nucleated Red Blood Cells % (auto) 0.0, Anion Gap 6L, Glomerular Filtration Rate > 60.0, C alcium Level 8.1L, Total Bilirubin 0.3, Aspartate Amino Transf (AST/SGOT) 19, Alanine Aminotransferase (ALT/SGPT) 17, Alkaline Phosphatase 86, Total Protein 5.7L, Albumin 2.7L, Albumin/Globulin Ratio 0.90L 10/14/19 05:50: Immature Granulocyte % (Auto) 0.3, Neutrophils (%) (Auto) 63.7, Lymphocytes (%) (Auto) 20.5L, Monocytes (%) (Auto) 9.3H, Eosinophils (%) (Auto) 5.2H, Basophils (%) (Auto) 1.0, Neutrophils # (Auto) 3.9, Lymphocytes # (Auto) 1.3L, Monocytes # (Auto) 0.6, Eosinophils # (Auto) 0.3, Basophils # (Auto) 0.1, Nucleated Red Blood Cells % (auto) 0.0, Anion Gap 5L, Glomerular Filtration Rate > 60.0, Calcium Level 7.9L, Total Bilirubin 0.4, Aspartate Amino Transf (AST/SGOT) 15, Alanine Aminotransferase (ALT/SGPT) 19, Alkaline Phosphatase 92, Total Protein 5.1L, Albumin 2.6L, Albumin/Globulin Ratio 1.04 10/14/19 06:49: Urine Color YELLOW, Urine Appearance CLOUDY, Urine pH 5.0, Urine Specific [place] 1.012, Urine Protein NEGATIVE, Urine Glucose (Auto)(UA) NEGATIVE, Urine Ketones (Auto) NEGATIVE, Urine Blood 2+H, Urine Nitrite POSITIVEH, Urine Bilirubin NEGATIVE, Urine Urobilinogen 0.2, Urine Leukocyte Esterase (Auto) 3+H, Urine WBC (Auto) 266, Urine RBC (Auto) 22H, Urine Hyaline Casts (Auto) 0, Urine Bacteria (Auto) 3+H, Urine Squamous Epithelial Cells <1.0, Urine Mucus (Auto) SMALL, Urine Sperm (Auto) CBC/BMP Laboratory Tests 10/13/19 12:21 10/14/19 05:50 Microbiology Microbiology 10/14/19 Urine Culture, Received Pending 10/14/19 Urine Culture, Received Pending 10/11/19 Stool Occult Blood (KENNEY) - Final, Complete 10/11/19 Gastrointestinal Tract Panel (PCR) - Final, Complete CATHIE ELLIOTT PA-C Oct 14, 2019 10:14
[2019-10-14 14:00] VITALS: BP 142/71
[2019-10-14] MEDS: NORCO, ANEXSIA 5/325MG TABLET (HYDROcodone/ACETAMINOPHEN) PO PRN ×2 (14:22→21:46)
[2019-10-14] MEDS: PRAVASTATIN 20 MG TAB PO SCH (21:44)
[2019-10-14] MEDS: FINASTERIDE 5 MG TAB PO SCH (21:44)
[2019-10-14] MEDS: PARoxetine 10MG TABLET PO SCH (21:44)
[2019-10-14 22:00] VITALS: BP 107/60
[2019-10-15] MEDS: NORCO, ANEXSIA 5/325MG TABLET (HYDROcodone/ACETAMINOPHEN) PO PRN ×2 (04:26→17:20)
[2019-10-15 06:00] VITALS: BP 145/82
[2019-10-15] MEDS: TAMSULOSIN 0.4 MG CAP PO SCH (09:43)
[2019-10-15] MEDS: oxyBUTYnin 5 MG TAB PO SCH (09:43)
[2019-10-15] MEDS: PARoxetine 20 MG TAB PO SCH (09:43)
[2019-10-15] MEDS: PANTOPRAZOLE 40MG TAB (PROTONIX) PO SCH (09:43)
[2019-10-15] MEDS: IRBESARTAN 150 MG TAB PO SCH (09:43)
[2019-10-15 14:00] VITALS: BP 128/75
--- NOTE | 2019-10-15 15:37 | IPNPDOC ---
Subjective Date Seen The patient was seen on 10/15/19. Subjective Chief Complaint/HPI He reports he feels pretty well today. Although he is fluent, he is not able to give much meaningful history because of his memory problems. He does deny any more evidence of GI blood loss. Nursing confirms this. They're most concerned with his intermittent ability to successfully straight cath himself. It sounds like prostate enlargement is a problem, although he can figure how to work around it. General: Reports: ROS Unobtainable Objective Physical Examination General Exam: Positive: Alert, Cooperative (sitting in bed nursing and cup of coffee when I entered the room. A sitter is present), No Acute Distress Eye Exam: Negative: Sclera icteric ENT Exam: Positive: Mucous membr. moist/pink Neck Exam: Positive: Supple; Negative: JVD, Lymphadenopathy Chest Exam: Positive: Clear to auscultation, Normal air movement Heart Exam: Positive: Rate Normal, Regular Rhythm, Normal S1, Normal S2 Telemetry: Positive: No significant arrhythmia Abdomen Exam: Positive: Normal bowel sounds, Soft; Negative: Tenderness, Hepatospenomegaly Skin Exam: Positive: Nl turgor and temperature; Negative: Rash, Breakdown Neuro Exam: Positive: Normal Speech (but it is limited to simple or superficial subjects) Psych Exam: Negative: Mental status NL, Memory Intact, Oriented x 3 Assessment /Plan Problems (1) UGI bleed Status: Acute Problem Text: 10/14 - hemoglobin is improving. He is tolerating a regular diet. I anticipate and may be able to discharge him home tomorrow. I will need P/T input on this. 10/13 Hgb stable, Xarelto held, plan for outpt GI consult. Cont with PO Protonix, will advance diet. Not safe for DC per PT. 10/12 UGI bleeding likely assoc with Xarelto, current held, cont with Protonix, await BW from this morning, he was combative overnight and therefore this wasn't drawn as usual. 10/11 Xarelto on hold. IV protonix. Advance diet as tolerated. monitor Hgb. Outpatient gastro for scope if appropriate. JFW: hattie d/c 10/13 if hgb is stable (2) Urinary retention Status: Chronic Problem Text: 10/14 - he seems to struggle sometimes to get the catheter in, ho wever if nursing keeps encouraging him to do so he will eventually get it placed. Asked them to bladder scan him only if it is greater than eight hours since he has been able to successfully catheterize himself. His this happens we may have to place a Castillo catheter, but I strongly prefer to leave him on intermittent catheterization. 10/13 difficulty overnight, but did well this morning. 10/12 intermittently self catheterizes. Continue home dose Flomax and Proscar (3) Dementia Status: Chronic Problem Specific Plan: Monitor Clinically (4) GERD (gastroesophageal reflux disease) Status: Chronic (5) Adverse effect of anticoagulant Status: Acute Problem Text: Xarelto on hold. May want to consider transition to alternative anti-coagulation on discharge. (6) DVT (deep venous thrombosis) Status: Chronic Problem Text: Xarelto currently on hold. (7) Impaired fasting glucose Status: Chronic Response to Treatment: Stable (8) HTN (hypertension) Status: Chronic Problem Text: continue home dose of Irbesartan Plan/VTE VTE Prophylaxis Ordered?: No VTE Exclusion Pharmacological: Bleeding Risk VS, I&O, 24H, Fishbone Vital Signs/I&O Vital Signs Date Time Temp Pulse Resp B/P (MAP) Pulse Ox O2 Delivery O2 Flow Rate FiO2 10/15/19 14:00 97.3 73 16 128/75 (92) 95 10/15/19 06:00 Room Air I&O- Last 24 Hours up to 6 AM 10/15/19 06:00 Intake Total 1120 ml Output Total 275 ml Balance 845 ml Laboratory Data Microbiology Microbiology 10/14/19 Urine Culture, Received Pending 10/11/19 Stool Occult Blood (KENNEY) - Final, Complete 10/11/19 Gastrointestinal Tract Panel (PCR) - Final, Complete Gamaliel Vogt MD Oct 15, 2019 3:37 pm
[2019-10-15 22:00] VITALS: BP 142/84
[2019-10-15] MEDS: PRAVASTATIN 20 MG TAB PO SCH (22:52)
[2019-10-15] MEDS: FINASTERIDE 5 MG TAB PO SCH (22:52)
[2019-10-15] MEDS: PARoxetine 10MG TABLET PO SCH (22:53)
[2019-10-16 06:00] VITALS: BP 146/85
[2019-10-16 07:03] LABS: HEMATOCRIT 33.6 % (42.0-52.0); MEAN CORPUSCULAR HEMOGLOBIN 29.7 pg (27.0-33.0); MEAN CORPUSCULAR HGB CONC 32.7 g/dl (32.0-36.5); MEAN CORPUSCULAR VOLUME 90.8 fl (80.0-96.0); PLATELET COUNT, AUTOMATED 239 10^3/uL (150-450); WHITE BLOOD COUNT 7.2 10^3/uL (4.0-10.0)
[2019-10-16 07:23] LABS: ALBUMIN 2.8 GM/DL (3.2-5.2); BLOOD UREA NITROGEN 14 MG/DL (7-18); CALCIUM LEVEL 8.2 MG/DL (8.8-10.2); CARBON DIOXIDE LEVEL 29 MEQ/L (21-32); CHLORIDE LEVEL 112 MEQ/L (98-107); CREATININE FOR GFR 0.88 MG/DL (0.70-1.30); GLOMERULAR FILTRATION RATE > 60.0 (>35); GLUCOSE, FASTING 87 MG/DL (70-100); PHOSPHORUS LEVEL 3.2 MG/DL (2.5-4.9); POTASSIUM SERUM 3.9 MEQ/L (3.5-5.1); SODIUM LEVEL 143 MEQ/L (136-145)
[2019-10-16] MEDS: PARoxetine 20 MG TAB PO SCH (09:47)
[2019-10-16] MEDS: IRBESARTAN 150 MG TAB PO SCH (09:50)
[2019-10-16] MEDS: TAMSULOSIN 0.4 MG CAP PO SCH (09:51)
[2019-10-16] MEDS: PANTOPRAZOLE 40MG TAB (PROTONIX) PO SCH (09:51)
[2019-10-16] MEDS: oxyBUTYnin 5 MG TAB PO SCH (09:51)
[2019-10-16 14:00] VITALS: BP 118/73
--- NOTE | 2019-10-16 17:05 | DS.PDOC ---
Discharge Summary General Date of Admission Oct 13, 2019 at 10:07 Discharge Summary PROCEDURES PERFORMED DURING STAY: [None]. ADMITTING DIAGNOSES: 1. . DISCHARGE DIAGNOSES: 1. . COMPLICATIONS/CHIEF COMPLAINT: GERD. HISTORY OF PRESENT ILLNESS: . HOSPITAL COURSE: . DISCHARGE MEDICATIONS: Please see below. ALLERGIES: Please see below. PHYSICAL EXAMINATION ON DISCHARGE: VITAL SIGNS: Please see below. GENERAL: HEENT: NECK: CARDIOVASCULAR EXAMINATION: RESPIRATORY EXAMINATION: ABDOMINAL EXAMINATION: EXTREMITIES: SKIN: NEUROLOGICAL EXAMINATION: PSYCHIATRIC EXAMINATION: LABORATORY DATA: Please see below. IMAGING: PROGNOSIS: ACTIVITY: [As tolerated]. DIET: DISCHARGE PLAN: DISPOSITION: . DISCHARGE INSTRUCTIONS: 1. . ITEMS TO FOLLOWUP ON ON OUTPATIENT: 1. . DISCHARGE CONDITION: [Stable]. TIME SPENT ON DISCHARGE: Greater than minutes. Vital Signs/I&Os Vital Signs Date Time Temp Pulse Resp B/P (MAP) Pulse Ox O2 Delivery O2 Flow Rate FiO2 10/16/19 14:00 97.8 69 17 118/73 (88) 94 10/16/19 06:00 Room Air I&O- Last 24 Hours up to 6 AM 10/16/19 05:59 Intake Total 900 ml Output Total 0 ml Balance 900 ml Laboratory Data Labs 24H Laboratory Tests 2 10/16/19 06:32: Nucleated Red Blood Cells % (auto) 0.0, Anion Gap 2L, Glomerular Filtration Rate > 60.0, Calcium Level 8.2L, Phosphorus Level 3.2, Albumin 2.8L CBC/BMP Laboratory Tests 10/16/19 06:32 Microbiology Microbiology 10/14/19 Urine Culture - Final, Complete Klebsiella Pneumoniae 10/11/19 Stool Occult Blood (KENNEY) - Final, Complete 10/11/19 Gastrointestinal Tract Panel (PCR) - Final, Complete Discharge Medications Scheduled Finasteride (Finasteride) 5 Mg Tab, 5 MG PO QHS, (Reported) Furosemide (Furosemide) 20 Mg Tab, 20 MG PO QHS, (Reported) Irbesartan (Irbesartan) 150 Mg Tab, 75 MG PO DAILY, (Reported) Oxybutynin Chloride (Oxybutynin Chloride) 5 Mg Tab, 5 MG PO DAILY, (Reported) Pantoprazole Sodium (Protonix) 40 Mg Tab, 40 MG PO DAILY, (Reported) Paroxetine HCl (Paroxetine HCl) 20 Mg Tab, 20 MG PO QAM, (Reported) Paroxetine HCl (Paroxetine HCl) 20 Mg Tablet, 10 MG PO QHS, (Reported) Pravastatin Sodium (Pravastatin Sodium) 40 Mg Tab, 40 MG PO QHS, (Reported) Rivaroxaban (Xarelto) 20 Mg Tab, 20 MG PO DAILY, (Reported) Tamsulosin HCl (Flomax) 0.4 Mg Cap, 0.4 MG PO DAILY, (Reported) Scheduled PRN Hydrocodone/Acetaminophen (Hydrocodone-Acetamin 5-325 mg) 1 Each Tablet, 1 TAB PO Q6H PRN for PAIN, (Reported) Allergies Coded Allergies: No Known Allergies (Unverified , 04/02/17) Gamaliel Vogt MD Oct 16, 2019 17:05
[2019-10-16 21:00] VITALS: BP 134/62
[2019-10-16] MEDS: PRAVASTATIN 20 MG TAB PO SCH (21:27)
[2019-10-16] MEDS: FINASTERIDE 5 MG TAB PO SCH (21:27)
[2019-10-16] MEDS: PARoxetine 10MG TABLET PO SCH (21:28)
[2019-10-16] MEDS: NORCO, ANEXSIA 5/325MG TABLET (HYDROcodone/ACETAMINOPHEN) PO PRN (21:28)
[2019-10-17 06:36] VITALS: BP 164/90
[2019-10-17] MEDS: PANTOPRAZOLE 40MG TAB (PROTONIX) PO SCH (08:20)
[2019-10-17] MEDS: TAMSULOSIN 0.4 MG CAP PO SCH (08:20)
[2019-10-17] MEDS: PARoxetine 20 MG TAB PO SCH (08:20)
[2019-10-17] MEDS: oxyBUTYnin 5 MG TAB PO SCH (08:20)
[2019-10-17 08:22] VITALS: BP 134/75
[2019-10-17] MEDS: IRBESARTAN 150 MG TAB PO SCH (08:22)
--- NOTE | 2019-10-18 20:46 | DSES ---
DATE OF ADMISSION: 10/13/2019 DATE OF DISCHARGE: 10/17/2019 ADDENDUM His discharge medications are as follows: - finasteride 5 mg by mouth at bedtime - furosemide 20 mg by mouth at bedtime - hydrocodone/acetaminophen 5/325 one tablet by mouth every 6 hours as needed for pain - oxybutynin 5 mg daily - Protonix 40 mg daily - paroxetine 20 mg in the morning, 10 mg in the evening - pravastatin 40 mg by mouth at bedtime - tamsulosin 4 mg daily DISCHARGE PLAN: Followup with gastrointestinal (GI. Followup with his primary care physician (PCP) in 1 week. ACTIVITY: As tolerated. MTDD
== END 2019-10-17 14:31 | disposition home health service (06) | DRG 813 ==
LOC: EDBD 12:37 → M ED 12:37 → M ED INP 12:38 → ENRESERV 19:27 → M PCU 20:17 → M MSPAV 10-12 14:15 → OBSVTOIN 10-13 10:07
PROVIDERS: ADMIT Internal Medicine; ATTEND Family Medicine
DX: D68.32 Hemorrhagic disorder due to extrinsic circulating anticoagulants (principal); Z79.899 Other long term (current) drug therapy; F03.90 Unspecified dementia, unspecified severity, without behavioral disturbance, psychotic disturbance, mood disturbance, and anxiety; I10 Essential (primary) hypertension; K21.9 Gastro-esophageal reflux disease without esophagitis; R33.9 Retention of urine, unspecified; Z79.01 Long term (current) use of anticoagulants; Z86.718 Personal history of other venous thrombosis and embolism; R73.01 Impaired fasting glucose; T42.6X5A Adverse effect of other antiepileptic and sedative-hypnotic drugs, initial encounter

== ENCOUNTER → 2021-04-02 | Outpatient (REF) | payer MEDICARE ==
[~2021-04-02] MED LIST changes: +BACTDSTA PO; -SULF1TAB93 PO
[2021-04-02 18:29] LABS: HEMOGLOBIN 13.6 g/dl (13.5-17.5); MEAN CORPUSCULAR HEMOGLOBIN 29.1 pg (27.0-33.0); MEAN CORPUSCULAR HGB CONC 31.6 g/dl (32.0-36.5); MEAN CORPUSCULAR VOLUME 92.1 fl (80.0-96.0); PLATELET COUNT, AUTOMATED 221 10^3/uL (150-450); RED BLOOD COUNT 4.67 10^6/uL (4.30-6.10); WHITE BLOOD COUNT 6.8 10^3/uL (4.0-10.0)
[2021-04-02 19:03] LABS: ALBUMIN 3.6 GM/DL (3.2-5.2); ALT/SGPT 18 U/L (12-78); BILIRUBIN,TOTAL 0.3 MG/DL (0.2-1.0); BLOOD UREA NITROGEN 21 MG/DL (7-18); CALCIUM LEVEL 8.7 MG/DL (8.8-10.2); CARBON DIOXIDE LEVEL 31 MEQ/L (21-32); CHLORIDE LEVEL 106 MEQ/L (98-107); CHOLESTEROL LEVEL 142 MG/DL (<200); CHOLESTEROL RISK RATIO 2.581 (<5); CREATININE FOR GFR 0.95 MG/DL (0.70-1.30); FREE T4 0.92 NG/DL (0.76-1.46); GLOMERULAR FILTRATION RATE > 60.0 (>35); GLUCOSE, FASTING 89 MG/DL (70-100); HDL CHOLESTEROL 55 MG/DL (>40); LDL CHOLESTEROL 76 MG/DL (<100); NON-HDL-C 87 MG/DL; POTASSIUM SERUM 4.3 MEQ/L (3.5-5.1); SODIUM LEVEL 141 MEQ/L (136-145); TRIGLYCERIDES LEVEL 55 MG/DL (<150)
== END ==
LOC: M SFHCADAM 13:50
PROVIDERS: ATTEND Family Medicine
DX: I11.9 Hypertensive heart disease without heart failure (principal); E78.5 Hyperlipidemia, unspecified; I73.9 Peripheral vascular disease, unspecified; Z86.718 Personal history of other venous thrombosis and embolism
CPT/HCPCS: 80053; 80061; 84439; 84443; 85027; G0463